=== PATIENT | male | born 1955 | race Caucasian/White ===

== ENCOUNTER 2017-12-28 16:13 | Emergency (ER) | payer OTHER ==
[~2017-12-28] VITALS: Ht 177.8 cm; Wt 65.8 kg
[~2017-12-28 16:13] MED LIST: CIPR500 PO; DOCU100 PO; HYDR1TAB94 PO; OXYB5 PO; TAMS.4ER PO
[2017-12-28] MEDS ORDERED: IBUP600 PO (19:49)
[2017-12-28] MEDS ORDERED: Norco 5-325 Ta1 EACH PO (19:49)
== END 2017-12-28 21:18 | disposition home or self-care (01) ==
LOC: ER 16:13
DX: S68.122A Partial traumatic metacarpophalangeal amputation of right middle finger, initial encounter (principal); F17.200 Nicotine dependence, unspecified, uncomplicated; W27.0XXA Contact with workbench tool, initial encounter
CPT/HCPCS: 99284

== ENCOUNTER 2020-10-10 10:46 | Emergency (ER) | payer MEDICARE, OTHER ==
[~2020-10-10] VITALS: Ht 177.8 cm; Wt 65.8 kg
[~2020-10-10 10:46] MED LIST changes: +IBUP600 PO; +Norco 5-325 Ta1 EACH PO
[2020-10-10 11:47] LABS: BASOPHILS ABSOLUTE AUTO 0.09 K/mm3 (0.00-0.23); BASOPHILS PERCENT AUTO 1 % (0-2); EOSINOPHILS ABSOLUTE AUTO 0.07 K/mm3 (0.00-0.68); EOSINOPHILS PERCENT AUTO 1 % (0-6); Hematocrit 46.1 % (37.0-53.0); Hemoglobin 15.2 g/dL (13.5-17.5); IMMATURE GRAN ABSOLUTE AUTO 0.02 K/mm3 (0.00-0.10); IMMATURE GRAN PERCENT AUTO 0 % (0-1); LYMPHOCYTES ABSOLUTE AUTO 2.31 K/mm3 (0.84-5.20); LYMPHOCYTES PERCENT AUTO 30 % (21-46); MONOCYTES ABSOLUTE AUTO 0.51 K/mm3 (0.16-1.47); MONOCYTES PERCENT AUTO 7 % (4-13); Mean Corpuscular HGB 32.9 pg (26.0-34.0); Mean Corpuscular Volume 100 fL (80-100); Mean Platelet Volume 9.7 fL (9.1-12.4); NEUTROPHILS ABSOLUTE AUTO 4.71 K/mm3 (1.96-9.15); NEUTROPHILS PERCENT AUTO 61 % (41-73); Platelet Count 245 K/mm3 (150-400); RDW Coefficient Variation 12.5 % (11.7-14.2); RDW Standard Deviation 46.2 fL (35.1-46.3); Red Blood Cell Count 4.62 M/mm3 (4.30-5.90); White Blood Cell Count 7.71 K/mm3 (4.00-11.30)
[2020-10-10 12:06] LABS: Alanine Aminotransfer (ALT/SGP 27 U/L (12-78); Albumin, Blood 3.9 g/dL (3.4-5.0); Albumin/Globulin Ratio 1.3 (0.8-1.8); Alk Phos 79 U/L (50-136); Anion Gap 2 mmol/L (6-16); Aspartate Aminotrans (AST/SGOT 16 U/L (12-37); Bilirubin, Total 1.5 mg/dL (0.1-1.0); Blood Urea Nitrogen 16 mg/dL (8-24); Bun/Creatinine Ratio 19.6 (12.0-20.0); CO2, Blood 32 mmol/L (21-32); Chloride, Blood 107 mmol/L (98-108); Creatinine, Blood 0.82 mg/dL (0.60-1.20); Glomerular Filtration Rate >60 (60-); Glucose, Blood 90 mg/dL (70-99); Potassium, Blood 3.6 mmol/L (3.5-5.5); Sodium, Blood 141 mmol/L (136-145); Total Protein, Blood 6.9 g/dL (6.4-8.2)
== END 2020-10-10 16:22 | disposition home or self-care (01) ==
LOC: ER 10:46
PROVIDERS: Physician Assistant
DX: I63.9 Cerebral infarction, unspecified (principal); G81.94 Hemiplegia, unspecified affecting left nondominant side; F17.200 Nicotine dependence, unspecified, uncomplicated
CPT/HCPCS: 36415; 70450; 80053; 85025; 85651; 99285-25

== ENCOUNTER 2020-10-12 11:29 | Inpatient (IN) | payer MEDICARE, OTHER ==
[~2020-10-12] VITALS: Ht 172.7 cm; Wt 57.8 kg
[2020-10-12 11:56] LABS: BASOPHILS ABSOLUTE AUTO 0.05 K/mm3 (0.00-0.23); BASOPHILS PERCENT AUTO 0 % (0-2); EOSINOPHILS ABSOLUTE AUTO 0.05 K/mm3 (0.00-0.68); EOSINOPHILS PERCENT AUTO 0 % (0-6); Hematocrit 41.2 % (37.0-53.0); Hemoglobin 13.8 g/dL (13.5-17.5); IMMATURE GRAN ABSOLUTE AUTO 0.04 K/mm3 (0.00-0.10); IMMATURE GRAN PERCENT AUTO 0 % (0-1); LYMPHOCYTES ABSOLUTE AUTO 1.36 K/mm3 (0.84-5.20); LYMPHOCYTES PERCENT AUTO 11 % (21-46); MONOCYTES PERCENT AUTO 7 % (4-13); Mean Corpuscular HGB 32.7 pg (26.0-34.0); Mean Corpuscular HGB Conc 33.5 g/dL (31.5-36.5); Mean Corpuscular Volume 98 fL (80-100); Mean Platelet Volume 9.8 fL (9.1-12.4); NEUTROPHILS ABSOLUTE AUTO 9.68 K/mm3 (1.96-9.15); NEUTROPHILS PERCENT AUTO 81 % (41-73); Platelet Count 216 K/mm3 (150-400); RDW Coefficient Variation 12.2 % (11.7-14.2); RDW Standard Deviation 43.8 fL (35.1-46.3); Red Blood Cell Count 4.22 M/mm3 (4.30-5.90); White Blood Cell Count 11.98 K/mm3 (4.00-11.30)
[2020-10-12 12:07] LABS: Alanine Aminotransfer (ALT/SGP 23 U/L (12-78); Albumin, Blood 3.3 g/dL (3.4-5.0); Albumin/Globulin Ratio 1.3 (0.8-1.8); Alk Phos 75 U/L (50-136); Anion Gap 5 mmol/L (6-16); Aspartate Aminotrans (AST/SGOT 15 U/L (12-37); Bilirubin, Total 0.5 mg/dL (0.1-1.0); Blood Urea Nitrogen 13 mg/dL (8-24); CO2, Blood 27 mmol/L (21-32); Calcium, Blood 8.3 mg/dL (8.5-10.1); Chloride, Blood 110 mmol/L (98-108); Creatinine, Blood 0.81 mg/dL (0.60-1.20); Globulin, Blood 2.6 g/dL (2.2-4.0); Glomerular Filtration Rate >60 (60-); Glucose, Blood 101 mg/dL (70-99); Potassium, Blood 3.6 mmol/L (3.5-5.5); Sodium, Blood 142 mmol/L (136-145); Total Protein, Blood 5.9 g/dL (6.4-8.2); Troponin I <0.015 ng/mL (0.000-0.040)
[2020-10-12 14:10] LABS: CHOL/HDL RATIO 2.9; Cholesterol 146 mg/dL (50-200); HDL Cholesterol 51 mg/dL (>39); LDL/HDL RATIO 1.7; Low Density Lipoprotein Chol 87 mg/dL (0-110); Triglycerides 41 mg/dL (30-160); Very Low Density Lipoprot Chol 8 mg/dL (6-32)
--- NOTE | 2020-10-12 18:11 | NUR ---
SHIFT SUMMARY PT NEW ADMIT TO PCU FOR CVA. TOTAL LEFT SIDE DEFICIT. SLURRED SPEECH. SLEEPY BUT ORIENTED. ABLE TO PROVIDE MEDICAL HISTORY. BEDREST AND NPO AT THIS TIME. CAROTID US, ECHO, AND NEURO CONSULT ORDERED. CONSULT CALLED IN TO DR KELLEN MARTINS. BRUISING TO BILAT UPPER ARMS. RESTING IN BED AT THIS TIME.
[2020-10-12 20:27] LABS: Source, Urine Clean Catch
[2020-10-12 20:30] LABS: Appearance, Urine Clear (Clear); Bilirubin, Urine Neg (Neg); Blood, Urine Neg (Neg); Color, Urine Yellow (P-Yellow); Glucose Qualitative, Urine Neg (Neg); Ketones, Urine Neg (Neg); Leukocyte Esterase, Urine Neg (Neg); Nitrite, Urine Neg (Neg); Protein, Urine Neg (Neg); Specific Gravity, Urine 1.015 (1.003-1.022); Urobilinogen, Urine NORM (Normal)
--- NOTE | 2020-10-12 22:15 | NUR ---
PATIENT AWAKE AND RESTLESS, ATTEMPTING TO USE URINAL, BECOMING ANGRY WITH ANY ATTEMPT TO ASSIST PATIENT WITH CARE AND WITH ORIENTATION QUESTIONS. AT 1945 PATIENT HAD NO MOVEMENT IN LEFT ARM AND ONLY GROSS MOVEMENT TO HIS LEFT LEG. ATTENDS IN PLACE DUE TO OCCASIONAL INCONTINENCE. ANSWERING QUESTIONS SPEECH SLURRED, DIFFICULT WITH ASSESSMENT BECAUSE PATIENT BECOMING ANGRY WITH QUESTIONS AND NOT ALWAYS ANSWERING THE QUESTION DESPITE EXPLAINING TO PATIENT THAT THIS IS ONE WAY FOR US TO ASSES IF HE IS GETTING BETTER. PATIENT NOW ABLE TO MOVE LEFT ARM AND LEG, FINE MOTOR SKILLS CONTINUE TO BE DIFFICULT ON LEFT SIDE.
[2020-10-13 04:10] LABS: BASOPHILS ABSOLUTE AUTO 0.07 K/mm3 (0.00-0.23); BASOPHILS PERCENT AUTO 1 % (0-2); EOSINOPHILS ABSOLUTE AUTO 0.17 K/mm3 (0.00-0.68); EOSINOPHILS PERCENT AUTO 2 % (0-6); Hematocrit 42.4 % (37.0-53.0); Hemoglobin 14.6 g/dL (13.5-17.5); IMMATURE GRAN ABSOLUTE AUTO 0.01 K/mm3 (0.00-0.10); IMMATURE GRAN PERCENT AUTO 0 % (0-1); LYMPHOCYTES PERCENT AUTO 26 % (21-46); MONOCYTES ABSOLUTE AUTO 0.69 K/mm3 (0.16-1.47); MONOCYTES PERCENT AUTO 8 % (4-13); Mean Corpuscular HGB 32.5 pg (26.0-34.0); Mean Corpuscular HGB Conc 34.4 g/dL (31.5-36.5); Mean Corpuscular Volume 94 fL (80-100); Mean Platelet Volume 9.8 fL (9.1-12.4); NEUTROPHILS ABSOLUTE AUTO 5.67 K/mm3 (1.96-9.15); NEUTROPHILS PERCENT AUTO 64 % (41-73); Platelet Count 224 K/mm3 (150-400); RDW Coefficient Variation 12.1 % (11.7-14.2); RDW Standard Deviation 42.8 fL (35.1-46.3); Red Blood Cell Count 4.49 M/mm3 (4.30-5.90); White Blood Cell Count 8.91 K/mm3 (4.00-11.30)
[2020-10-13 04:36] LABS: Anion Gap 6 mmol/L (6-16); Blood Urea Nitrogen 9 mg/dL (8-24); Bun/Creatinine Ratio 12.4 (12.0-20.0); CO2, Blood 24 mmol/L (21-32); Calcium, Blood 8.3 mg/dL (8.5-10.1); Chloride, Blood 109 mmol/L (98-108); Creatinine, Blood 0.73 mg/dL (0.60-1.20); Glomerular Filtration Rate >60 (60-); Glucose, Blood 89 mg/dL (70-99); Potassium, Blood 3.6 mmol/L (3.5-5.5); Sodium, Blood 139 mmol/L (136-145)
--- NOTE | 2020-10-13 05:34 | NUR ---
SUMMARY PATIENT SLEEPING OFF AND ON T/O NIGHT. WHEN AWAKE ATTEMPTING TO USE THE URINAL, BECOMING ANGRY WHEN NURSING STAFF ATTEMPTS TO ASSIST WITH THE URINAL. PATIENT EITHER MISSING URINAL, OR SPILLING URINAL WHEN USING IT WITHOUT ASSISTANCE. LEFT SIDE WEAKNESS CONTINUES OCCASIONAL GROSS MOVEMENT SEEN TO ARM AND LEG, NO FINE MOTOR SKILLS. PATIENT KEEPING EYES CLOSED MOST OF THE NIGHT, WHEN OPEN CONTINUES TO NOT MAKE GOOD EYE CONTACT. PATIENT REFUSING TO ACKNOWLEDGE THAT HE HAS HAD A CVA. PATIENT QUICK TO ANGER T/O NIGHT
--- NOTE | 2020-10-13 12:54 | NUR ---
Echocardiogram using 9.0ml of agitated saline contrast performed.
--- NOTE | 2020-10-13 18:53 | NUR ---
SHIFT SUMMARY PT ALERT, ORIENTED x2. PT IMPULSIVE, IRRITABLE AT TIMES. PT HAS NO PURPOSEFUL MOVEMENT IN PETRA AND LLE, BOTH TONES AND FLACCID AT TIMES. DENIES VISUAL DISTURBANCES, HOWEVER HAS RIGHT GAZE AND UNABLE TO SEE/FOLLOW WITH LEFT EYE. SPEECH IN SLURRED AND MUMBLED AT TIMES, PT IRRITABLE WHEN ASKED TO REPEAT HIMSELF. PT DENIES PAIN T/O SHIFT. SPO2 >90% ON RA, BREATHING EVEN AND UNLABORED. PT NEICE REPORTS TICK BIT APPROX 2 WEEKS AGO ON LEFT SHOULDER, PT REPORTS IT WAS ON LEFT UPPER ARM, PT HAS SCATTERED SCABS AND BRUISING T/O. PT DENIES NAUSEA AND DIZZINESS. VSS. ORAL CARE COMPLETED Q4. PT REPOSITIONED Q2. NO OTHER ACUTE CHANGES NOTED. REPORT GIVEN TO ONCOMING RN.
--- NOTE | 2020-10-14 05:05 | NUR ---
pt rested well t/o noc. vss. L sided deficit continues. gross movement to LLE, flaccid w/ no sensation to LUE. slight Lsided facial droop. pt resistant and irritable to caregivers including neuro assessments. states "I'm tired of the same questions over and over", "I just want to go home". attempts to reposition pt q2hrs but pt resistant. LUE elevated on pillow. oral care provided. bed alarm on. call light within reach on R side of pt.
--- NOTE | 2020-10-14 18:01 | NUR ---
SHIFT SUMMARY PT A&Ox2. PT IMPULSIVE, IRRITABLE AT TIMES. PT HAS NO PURPOSEFUL MOVEMENT TO LEFT SIDE. LEFT SIDE FLACCID FOR MAJORITY OF SHIFT, AT TIMES LUE RIGID. PT SPEECH SLURRED AND MUMBLED. RIGHT GAZE, PT DENIES VISUAL DISTURABNCES HOWEVER UNABLE TO SEE ON LEFT SIDE OR FOLLOW MOVEMENT ON LEFT SIDE. PT HAD COUGHING EPISODE WITH LUNCH, NOTIFIED SPEECH THERAPY, PLANS TO CONTINUE WITH DIETS PLANNED. THIS EVENING PT CONTINUES TO COUGH WITH NECTAR THIS, LEFT MESSAGE FOR SPEECH THERAPY. LS DIM T/O; SPO2 >90% ON RA, BREATHING EVEN AND UNLABORED. PT DENIES PAIN, CHEST PAIN, NAUSEA AND DIZZINESS. UP TO BSC THIS AFTERNOON WITH 3 PERSON ASSIST, PIVOT BACK TO BED. VSS. NO OTHER ACUTE CHANGES NOTED. WILL CONTINUE TO MONITOR UNTIL REPORT GIVEN TO ONCOMING RN.
--- NOTE | 2020-10-15 04:22 | NUR ---
DAIRY CLERK SUMMARY PT'S NUERO REMAINS NOSTLY UNCHANGED FROM PREVIOUS SHIFT. ALTHOUGH PT CANNOT NOTICE THINGS IN HIS LEFT FIELD OF VIEW HE WAS ABLE TO IDENTIFY HOW MANY FINGERS I WAS HOLDING UP ON HIS L SIDE. PT'S L SIDE REMAINS FLACCID AND HIS SPEECH VERY SLURRED. BP'S WNL AND STALE THIS SHIFT. O2 SATS >92% ON RM AIR ALTHOUGH 3 DIFFERENT BRIEF APNEIC EPSIODES WERE NOTED WHILE THE PT WAS SLEEPING. PT IRRITABLE THIS SHIFT NOT WANTING TO PARTICIPATE W CARE AND HAS BEEN VERY CYNICAL W THE PLAN OF CARE. ORAL CARE PROVIDED Q4H AND REPOSITIONING Q2H. PT COMPLIANT W ORAL CARE AND REPOSITIONING. WILL REPORT TO ONCOMING RN.
--- NOTE | 2020-10-15 17:27 | NUR ---
SHIFT SUMMARY; REPORT GIVEN TO MAYANK UMANZOR ON MEDICAL FOR IN HOUSE TRANSFER. NO ACUTE CHANGES DURING SHIFT. LEFT SIDE REMAINS FLACID, GAZES TO RIGHT. PUPILS EQUAL AND REACTIVE. A/A/OX3, SLOW TO RESPOND, SPEECH SLURRED. CONDOM CATH IN PLACE AND ATTENDS. CATH CHANGED DURING SHIFT. Q2 TURNS PROVIDED DURING SHIFT AND Q4 ORAL CARE. TRANSFERRED TO MEDICAL FLOOR IN NO ACUTE DISTRESS.
--- NOTE | 2020-10-15 18:30 | NUR ---
PT TRANSFERRED TO MY CARE, HE IS TALKATIVE. FAMILY AT BEDSIDE. IS ASSISTING TO FEED. TAUGHT APPROP FEEDING PER NORIS NOTES. FAMILY QUITE PLEASANT AND EAGER TO ASSIST. WATCHED FOR SHORT TIME. NO NEW CONCERNS NOTED. HE TALKING ON PHONE TO NANCY ALSO. BED IN LOW POSITION, CALL LITE IN REACH, BED ALARM ON FOR SAFETY
--- NOTE | 2020-10-15 19:55 | NUR ---
ASSUMED CARE. AOX3, SLURRED SPEECH, LEFT FACIAL DROOP. GAZED TO THE RIGHT. LEFT SIDE FLACCID, STATES FEELS SENSATION, LEANS TO RIGHT. NO PAIN. LUNGS CLEAR. REGULAR HR. CONDOM CATH TO GRAVITY BAG, URINE YELLOW. DENIES CP, NAUSEA, HEADACHES, DIZZINESS, DISCOMFORT, OR ANY OTHER SYMPTOMS. WILL CONTINUE TO MONITOR AND TX. CALL LIGHT IN REACH, BED IN LOW POSITION.
--- NOTE | 2020-10-15 20:30 | NUR ---
POST FALL ASSESSMENT: 1999: FOUND THE PATIENT ON THE FLOOR, LAYING ON THE LEFT SIDE, LEFT ARM TUCKED BEHIND HIM, HEAD FACING TOWARDS END OF THE BED NEXT TO BENCH, LEGS WERE BENT AND CROSSED AT ANKLES, CONDOM CATH WAS PULLED OFF. FALL WAS ON RIGHT SIDE OF BED. PATIENT HAD PULLED SELF UP AND OVER SIDE RAILS. HE STATED "I WAS GOING TO USE THE BATHROOM IN THE SINK". FORGOT HE HAD A CONDOM CATHETER ON. FORGOT HE WAS UNABLE TO STAND ON LEFT LEG. BLOOD NOTED ON BILATERAL FA. PATIENT DENIED PAIN ANYWHERE EVEN IN NECK. DID STATE HE HIT HIS HEAD ON THE BENCH. DENIED CHANGE IN VISION FROM PRIOR TO FALL. ONCE SAFE TO MOVE, POSITIONED ARM IN FRONT OF HIM. CALLED EDMUNDO HACKETT AND FROILAN Varela CNA FOR ASSISTANCE. CALLED CHARGE LINDY AND INFORMED OF FALL AND TIME. SHE WILL INFORM NURSING ABRASIVES SALES REPRESENTATIVE. 2004: EDMUNDO AND FROILAN ARRIVED. HELPED TO ASSIST PATIENT TO SITTING POSITION AND THE THREE OF US LIFTED HIM TO THE SIDE OF BED. HE WAS UNABLE TO KEEP SITTING ON HIS OWN. DENIED ANY DIZZINESS, OR LIGHTHEADNESS. WE ASSISTED HIM ALL THE WAY INTO BED. ALERT AND ORIENTED TO SELF, FAMILY, MONTH, YEAR. DOES NOT KNOW DATE OR TIME. KNOWS HE IS IN ISSUE. AGAIN DENIED PAIN. PUPILS EQUAL AND REACTIVE. LEFT SLUGGISH, ABRASION TO LEFT SHOULDER NEW. VERY SMALL SKIN TEARS TO BILATERAL ARMS. CLEANSED AND PLACED FOAM DRESSINGS. PICS WERE TAKEN. VITALS PRIOR TO FALL 102/67 BP, 82 P, 92% RA, 98.4 TEMP, 16 RESP. POST FALL VITALS: 138/84 BP, 78P, 95% RA, 99.2 TEMP, 20 RESP. LS CLEAR. REGULAR HR. NO CHEST PAIN, DIZZINESS, LIGHTHEADNESS. PUPILS WERE EQUAL, LEFT SLUGGISH, TONGUE DIVIATION, LEFT FACIAL DROOP, FLACCID LEFT SIDE. STATES FEELS SENSATION BILATERALLY. DENIED NEED TO USE BATHROOM. ATTENDS OFF. SLURRED SPEECH. MARIE PRIOR SAFETY MEASURES: ALL SIDE RAILS WERE UP, NO BED ALARM ON AT TIME. CALL LIGHT WAS IN REACH MARIE SCORE: [id number]: CALLED PLACED TO DR. JARRETT, INFORMED OF FALL. ORDER TO MONITOR FOR CHANGES. NO CT AT THIS TIME. CALL IF THERE IS CHANGES.
--- NOTE | 2020-10-15 22:24 | NUR ---
2100: PATIENT IRRITABLE, ASKING FOR CELL PHONE, CHECKED ALL BAGS, NO CELL PHONE. PHONE IN ROOM NOT WORKING. INFORMED HIM WILL BRING ONE IN FOR HIM. SLIGHTLY MORE CONFUSED, STATING "YOU SHOULDN'T MOVE PEOPLE FROM ROOM TO ROOM THINGS GET LOST". BED ALARM STILL ON FROM BEING PLACED ON AFTER FALL. 2212: PATIENT SET OFF ALARM, HAD LEG OVER RAIL, STATING HE NEEDS TO GET UP. SPEECH IS MORE SLURRED AND DIFFICULT TO UNDERSTAND. HE STARTED TO GET VERY ANGRY WHEN I REMINDED HIM HE CAN NOT STAND. ACUSED ME OF STEALING HIS PHONE. STATE HE WANTS TO CALL HIS NELISANDRO, GAVE HIM THE ROOM PHONE AND HELPED HIM CALL ANDRIY. HE APPEARED MORE CONFUSED. HE STARTED TO YELL AT HIS NEICE ON THE PHONE AND WAS NOT COMPERHENDING THAT SHE SAID SHE HAD HIS CELL PHONE. GOT ON PHONE TO EXPLAIN TO HER THE SITUATION AND CLARIFY SHE HAD IT. I WAS ON THE PHONE HE STARTED TO TELL ME HE CAN SEE THE CROSS MOVING IN THE WINDOW. THERE WAS A REFELCTION OF THE CROSS ON THE WALL. WENT TO PUT HAND ON CROSS AND HE SAID IT WAS MOVING. THEN HE TOLD ME THE CURTAIN SON IS MOVING UP AND DOWN. ASKED HIM ORIENTATION QUESTIONS AND HE WAS CONFUSED NOT KNOWING THEM AND NANCY DID MENTION HE NEVER ACTS LIKE THAT AND WAS CONCERNED. GOT OFF PHONE WITH NANCY TO CALL MD ABOUT CHANGES. 2220: SPOKE TO DR. JARRETT REGARDING CHANGES. CT OF HEAD WITH NO CONTRAST ORDERED STAT. 2224: PATIENT TO CT.
--- NOTE | 2020-10-16 01:10 | NUR ---
2300: RETURN FROM CT. NEURO CHECK: PATIENT CALM AND BUT IS NOW RESPONDING SLOW WITH PAUSES LIKE HE IS HAVING TROUBLE COMPERHENDING. VERY TIRED. 0020: CALLED CT RESULTS TO DR. VITAL. HARRISON REYES'S. CHANGES WERE NOTED, PROGRESSION OF STROKE BUT NO BLEED FROM FALL. OK TO TELL NANCY OF PROGESSION BUT TO TALK TO DOCTOR IN MORNING. 0039: CALLED THE NELISANDRO IN REGARDS TO CHANGES. NANCY WAS VERY TALKATIVE AND SAID SHE WAS NEVER TOLD WHAT WAS GOING ON EXCEPT HE HAD SEVERAL BLOOD CLOTS. BEFORE I WAS ABLE TO INFORM HER OF RESULTS, DR. VITAL CALLED SO TOLD HER i WOULD CALL BACK. DR. VITAL ASKED ABOUT THE NEUROLOGICAL CHANGES. INFORMED HIM AND HE SAID HE WOULD CALL THE NELISANDRO. CT SCAN FORWARD TO [facility] PER ORDER. PATIENT CURRENTLY SLEEPING. 0110: CALLED ANDRIY BACK. SHE GAVE GOOD BACK GROUND ON THE PATIENT NOT TELLING HER THE EVENTS THAT HAPPENED OVER THE LAST SEVERAL DAYS. SHE VERBALIZED HER CONCERNS AND FAMILY CONCERNS ABOUT HER ABILITY TO TAKE CARE OF HIM. SHE SAID IF HE IS IN A WHEELCHAIR SHE WOULD NOT BE ABLE TO. DID INFORM HER THAT THE STROKE IS PROGRESSING AND THAT DR. VITAL WILL BE CONTACTING HER.
--- NOTE | 2020-10-16 06:30 | NUR ---
SHIFT SUMMARY; PATIENT HAD FALL AT START OF SHIFT. ASSESSMENT WAS DONE POST-FALL. LEFT SIDE DEFICITS SEEMED TO CHANGE THROUGHOUT THE NIGHT. AFTER FALL HE HAD PROGRESSION OF SYMPTOMS, NO RESPONSE ON THE LEFT SIDE TO WAKING UP THIS AM AND HAVING GROSS MOVEMENT TO LEFT LEG ONLY. STARTED TO HAVE HULLUCINATIONS AND CONFUSION TO MORE CLEAR THIS AM. AGGRESSIVE BEHAVIOR, IRRITABLE TO CALM. CT OF HEAD DONE WITH NOTED CHANGES AND PROGRESSION OF STROKE. NANCY WAS NOTIFED INCLUDIGN OF THE CHANGES. NEURO CHECKS WERE CONTINUED T/O THE NIGHT. PATIENT DID SLEEP FOR PERIOD OF TIME. FOR MORE DETAILS PLEASE SEE NEURO ASSESSMENT FORM AND PATIENT NOTES. POST FALL MARIE SCORE 95. BED ALARM ON AND RAILS UP. BED IN LOW POSITION. POST FALL PROCEDURE COMPLETED WITH POST FALL HUDDLE COMPLETED.
--- NOTE | 2020-10-16 16:50 | NUR ---
PATIENT IS ALERT AND ORIENTED TO SELF AND FOLLOWING DIRECTIONS. PATIENT DOES STARE OFF INTO SPACE AT TIMES. HE WORKED WITH PT/OT TODAY AND HAD A HARD TIME KEEPING FOCUSED. THE PATIENT DID SIT UP ON THE SIDE OF THE BED WITH PT TODAY. HE IS INCONTINENT OF URINE, ATTENDS IN PLACE. TOLERATED FOOD WELL TODAY, ST SUGGESTS FEEDING THE PATIENT FROM THE FRONT AND ASKING HIME TO LOCATE THE SPOON WITH HIS EYES. BED ALARM IS ON. WILL CONTINUE TO MONITOR.
--- NOTE | 2020-10-17 05:03 | NUR ---
SHIFT SUMMARY PT IS IRRITABLE WITH STAFF. NEURO CHECK REMAINS UNCHANGED. FLACCID TO LEFT SIDE. TENDS TO TURN HEAD TO R SIDE. SOME LEFT SIDED FACIAL DROOP AND SLURRED SPEECH. PT INCONTINENT. TURNED Q 2 HOURS. DRESSINGS TO ABRASIONS ON RFA REMAINED C/D/I. NO COMPLAINTS OF PAIN. PT APPEARED TO SLEEP WELL OFF AND ON. VITAL SIGNS STABLE. WILL CONTINUE TO MONITOR.
--- NOTE | 2020-10-17 17:06 | NUR ---
PATIENT IS ALERT AND ORIENTED. HE WAS UPSET THIS MORNING ABOUT HIS PUREE DIET. SPEECH THERAPY EXPLAINED HOW TO ADVANCE DIET AND WHAT HE NEEDS TO BE ABLE TO DO TO DO SO. THE PATIENT HAS HAD A VERY POOR APPETITE TODAY. HE HAS SLEPT MOST OF THE DAY. PATIENT IS ATTEMPTING TO USE A BEDPAN AT THIS TIME. WORKED WITH PT TODAY, AND HAS IMPROVED COMPARED TO YESTERDAY. WILL CONTINUE TO MONITOR
--- NOTE | 2020-10-17 21:15 | NUR ---
ASSUMED CARE. LEO IS AOX3, SLURRED SPEECH, ABLE TO DRINK THICKEN DRINKS ON HIS OWN. REPOSITIONED UP IN BED. ATTENDS IS DRY. NO PAIN. WAS ABLE TO LIFT LEFT ARM BUT UNABLE TO MOVE FINGERS. WAS UNABLE TO MOVE LEFT LEG OR WIGGLE TOES. LEFT FACIAL DROOP WELL. DENIED ANY NEEDS. BED ALARM IS ON, BED IN LOW POSITION. CALL LIGHT IN REACH.
--- NOTE | 2020-10-18 06:01 | NUR ---
SHIFT SUMMARY: LEFT ARM GROSS MOTOR MOVEMENT, LEFT LEG FLACCID. LEFT FACIAL DROOP, LEFT DROOL, GAZE TO THE RIGHT BUT HE HAS BEEN GOOD AT TRYING TO KEEP HEAD FORWARD. DOES GET IRRITATED WHEN ASKED SEVERAL TIMES TO REPEAT SELF. LUNG SOUNDS ARE CLEAR. SLURRED SPEECH THAT GETS WORSE WHEN HE HIS TIRED. SLEEP APNEA NOTED, SEVERAL SECOND PAUSES. SLEPT T/O NIGHT. DENIED ANY NEEDS. POSSIBLE DC TODAY. CALL LIGHT IN REACH, BED ALARM IS ON.
--- NOTE | 2020-10-18 16:15 | NUR ---
PT AGITATED BECAME VERY AGITATED, STATING WANTED OUT OF BED. ATTEMPTED TO ADJUST LINENS UNDER PT, BEGAN CURSING AT STAFF, DEMANDING TO GET OOB. RN AND MANAGER IT SECURITY ASSISTED W/GAIT BELT TO CHAIR W/STAND PIVOT, MAX TWO PERSON ASSIST. PT NOW IN RECLINER W CHAIR ALARM. CALL LIGHT IN REACH. LINENS TO BED CHANGED AND MANAGER IT SECURITY PERFORMED BED BATH.
--- NOTE | 2020-10-18 17:16 | NUR ---
SUMMARY BACK TO BED. CALL LIGHT IN REACH. PT MOD/MAX TWO PERSON ASSIST TO STAND/PIVOT FROM CHAIR TO BED. PT MORE CALM AT THIS TIME, SEE PREVIOUS NOTE CONCERNING AGITATION. PT'S CALL LIGHT ON RIGHT SIDE, WELL TRAY.
--- NOTE | 2020-10-18 18:59 | NUR ---
PT DECLINED OFFER FOR THICKENED WATER.
--- NOTE | 2020-10-18 23:04 | NUR ---
ASSUMED CARE. LEO IS WITHDRAWN AT START OF SHIFT BUT AFTER HIS NEICE STOPPED BY HE WAS MORE BACK TO HIMSELF. HE WAS JOKING AND SMILING. HE ALSO FELT BETTER HE GOT HIS TEETH WASHED VERY WELL, DENTURE IS REMOVED AND SOAKING. ALSO GOT HIM SOME TYLENOL FOR NECK PAIN. ROLLED A TOWEL AND PUT BEHIND HIS HEAD WELL TO SUPPORT THE NECK. HE DID NOT WANT TO EAT MUCH, HE JUST WANT TO HAVE NORMAL FOOD. DISCUSSED THE SAFETY RISK AND HE SEEMS TO UNDERSTAND MORE, USING THE THOUGHT THAT ASPIRATION WILL CAUSE HIM TO STAY IN THE HOSPITAL LONGER, WHICH IS NOT WHAT HE WANTS AT THIS TIME. HE IS CURRENTLY SLEEPING. BED ALARM IS ON AND CALL LIGHT IS IN REACH.
--- NOTE | 2020-10-19 05:01 | NUR ---
SHIFT SUMMARY: LEO WAS VERY IRRITABLE AT START OF SHIFT, JUST NOT WANTING TO DO MUCH. HIS NEICE ANDRIY ARRIVED WHICH HELPED TO PUT HIM IN A BETTER MOOD. AFTER SHE LEFT PM AND ORAL CARE WAS PROVIDED. HE SPOKE ABOUT HOW DIFFICULT THIS WAS FOR HE HAS ALWAYS BEEN INDEPENDENT. BEING TOLD WHAT HE CAN AND CAN'T DO OR WHAT SOMEONE IS DOING FOR HIM HAS BEEN VERY DOWN GRADING FOR HIM. HE THEN GOT INTO A BETTER MOOD FOR SHORT PERIOD. HIS SYMPTOMS HAVE NOT CHANGED BUT DO CHANGE FROM TIME TO TIME ON HOW MUCH HE CAN USE HIS ARM AND LEG. NO FINE MOTER SKILLS. VSS, AFEBRILE. WANTS TO GO HOME BUT DID DICUSS WITH HIM THE NEED TO GO TO REHAB. WILL CONTINUE TO MONITOR CALL LIGHT IN REACH, BED ALARM ON.
[2020-10-19 08:33] LABS: Hemoglobin 16.6 g/dL (13.5-17.5)
[2020-10-19 08:51] LABS: Anion Gap 4 mmol/L (6-16); Blood Urea Nitrogen 27 mg/dL (8-24); Bun/Creatinine Ratio 32.9 (12.0-20.0); CO2, Blood 28 mmol/L (21-32); Calcium, Blood 9.5 mg/dL (8.5-10.1); Chloride, Blood 106 mmol/L (98-108); Creatinine, Blood 0.82 mg/dL (0.60-1.20); Glomerular Filtration Rate >60 (60-); Glucose, Blood 105 mg/dL (70-99); Potassium, Blood 4.1 mmol/L (3.5-5.5); Sodium, Blood 138 mmol/L (136-145)
--- NOTE | 2020-10-19 13:26 | NUR ---
SHIFT SUMMARY PT RESTING QUIETLY AT START OF SHIFT. REFUSED TO EAT BREAKFAST OR LUNCH. DOES NOT LIKE PUREE DIET AND WANTS THIN WATER, NO THICKENED LIQUIDS. PT HAS BEEN VERY IRRITABLE TODAY TO PRESENT. SUPPOSITORY GIVEN EARLIER THIS AM; MINIMAL EFFECT. PT LATER REQUESTED EMEMA. DR GILBERT NOTIFIED; NEW ORDERS PLACED, EMEMA GIVEN. SM AMT OF STOOL OUT TO PRESENT. STAT COVID TO BE DONE FOR POSSIBLE D/C TO SNF TOMORROW. NO C/O PAIN. L SIDE MOSTLY FLACCID. BED ALARM ON FOR SAFETY. CALL LT IN REACH.
[2020-10-19 16:17] LABS: SARS-Cov-2 (COVID-19) PCR, MMC NEGATIVE (NEGATIVE)
--- NOTE | 2020-10-20 | NUR ---
2310-PATIENT CHECKED, WAS SLEEPING, BED ALARM ON, 2 RAILS UP, CALL LIGHT IN REACH. WENT TO ASSIST WITH ANOTHER PATIENT WHEN I HEARD THE ALARM SOUNDING, MADE SURE THE PATIENT I WAS WITH WAS SAFE BEFORE LEAVING. 2330-PATIENT FOUND ON FLOOR LEFT SIDE, BLOOD ON FLOOR AND DRIPPING FROM LEFT SIDE OF FACE. "I WANT TO GET UP". ASKED IF HE HAD TO USE THE BATHROOM, HE SAID NO BUT HE PISSED HIMSELF. GOT HIM TO SITTING POSITION, WAS UNABLE TO HOLD SELF UP. HE ATTEMPTED SEVERAL TIMES TO GET UP ON HIS OWN, EVEN GRABBED THE END OF THE BED, TRYING TO PULL SELF UP BUT WAS SLIDING UNDER THE BED. HE WOULD NOT LISTEN TO STAFF. WITH 2 PEOPLE WAS ABLE TO LIFT TO CHAIR THEN TO BED. LACERATIONS NOTED TO LEFT CHECKBONE MEASURES 1 INCH. LEFT EYEBROW 0.5 LENGTH. AND SKIN TEAR TO LEFT EAR LOBE INNER SIDE. CLEANSED ALL AREAS, PICS TAKEN. DID PLACE POSI VEST AT THIS TIME. RESTRAINTS PLACED. STERI-STRIPS TO CHECKBONE X2. CHARGE LINDY TALLEY ARRIVED TO ROOM AT SAME TIME I DID. 2347: DR. VITAL WAS NOTIFED, CT WAS ORDERED STAT, ORDER FOR RESTRAINTS OBTAINED. 2355: NOTIFIED FAMILY : ANDRIY CRUZ.
--- NOTE | 2020-10-20 06:38 | NUR ---
SHIFT CHANGE: LEO HAS BEEN VERY SABA, IRRITABLE, AND APPEARS TO BE GRUMPY AT TIMES. HE IS HAVING A HARD TIME ADJUSTING TO HIS NEW SITUATION. HE'S VERY DETERMINED THAT HE CAN GET UP AND GO. HE IS NOT ADJUSTING TO THE FACT THAT HE CAN NOT DO THINGS LIKE BEFORE. HE FELL AGAIN LAST NIGHT TRYING TO GET UP. HE WAS VERY DETERMINED AND BASICALLY THROUGH HIMSELF OUT OF BED ONTO THE FLOOR. LACERATION ON THE LEFT CHEEK, LEFT EYEBROW AND SKIN TEAR IN HIS LEFT EARLOBE. CT SHOWED NO CHANGES. OZIEL VEST WAS APPLIED PER ORDERS. PATIENT SLEPT REST OF NIGHT, DID WAKE UP THIS MORNING AND HAD A LONG TALK WITH HIM ABOUT SLOW PROGRESSION THAT HE JUST CAN'T GET UP AND GO AT THIS TIME. DISCUSSED NEED TO EAT AND DRINK, WORK WITH PT AND USE HIS DETERMINATION TO BUILD HIS STREGNTH UP. HE BROKE DOWN IN TEARS ABOUT HIS SITUATION AND HOW HE WILL NOT BE ABLE TO DO THINGS. SAT AND TALKED WITH HIM FOR A WHILE. HE DID FALL BACK TO SLEEP. CALL LIGHT IS IN REACH. BED ALARM IS ON, OZIEL VEST IN PLACE.
--- NOTE | 2020-10-20 18:06 | NUR ---
will attetmpt again to reach family. pt on held due to restraints.
--- NOTE | 2020-10-20 18:33 | NUR ---
SHIFT SUMMARY PT ALERT; GARBLED SPEECH DUE TO CVA DEFICITS; LEFT SIDED WEAKNESS NO RESPONSE ON LEFT SIDE. PT ON RESTRAINTS DUE TO VERY HIGH FALL RISK AND DOES NOT UNDERSTAND HIS DISEASE PROCESS;EDUCATED THE PT TODAY ABOUT USING CALL LIGHTS; THE PT DOES NOT LIKE PUREE DIET HOWEVER HE IS HIGH ASPIRATION RISK. PT IS ALSO A FEEDER. BED IS IN THE LOWEST POSITION, BED ALARM ON AND CALL LIGHT WITHIN REACH
--- NOTE | 2020-10-21 05:27 | NUR ---
SHIFT SUMMARY: LEO HAS BEEN SLEEPING 90% OF THE SHIFT, EXCEPT FOR ATTENDS CHANGE AND REPOSITIONING. HE WAS ABLE TO FLEX HIS LEFT THIGH MUSCLES AND LIFT HIS LEFT LEG UP SLIGHTLY. ARM NO MOVEMENT. NO CHANGES IN SPEECH, VISION, OR SENSATION. LEFT CHEEK HAS DECREASED IN SIDE. STERI-STRIPS ARE HOLDING. STILL HAVING LOOSE BOWEL, HELD SENNA. VSS/AFEBRILE. REMOVED RESTRAINTS AT 2245 LAST NIGHT, HE DOES UNDERSTAND HE CAN NOT GET UP BUT I THINK HE FORGETS THE LIMITATION. REMINDERS CAN HELP T/O THE DAY. NO OTHER CHANGES TO NOTE. CALL LIGHT IS IN REACH, BED ALARM IS ON SENSITIVE. 3 RAILS UP. BED IN LOW POSITION.
--- NOTE | 2020-10-21 15:11 | NUR ---
PT REALLY FRUSTRATED AND ANGRY ABOUT THE FACT THAT HE IS ON PUREE DIET AND NECTAR THICK FLUIDS. HE HAS BEEN WANTING TO DRINK THIN LIQUIDS; BUT HE HAS TO BE REEVALUATED FOR ST. EDUCATED THE PT ABOUT RISK OF ASPIRATION. BUT HE STATED "I DONT CARE ANYMORE. " THIS RN CALLED ST AND LEFT A MESSAGE. REFUSED AM MEDS; REFUSED ORAL FLUIDS. PT STATED " I AM NOT DRINKING THAT CAT PEE." PT STATED THAT NO ONE IS HELPING HIM BECAUSE WE ARE NOT GIVING HIM WHAT HE WANTS. HE IS VERY IMPULSIVE, AND DETERMINED TO GET OUT OF BED WITHOUT HELP. HE ATTEMPTED TO JUMP OUT OF BED SEVERAL TIMES TODAY; BED ALARM IS ON.
--- NOTE | 2020-10-21 17:15 | NUR ---
SHIFT SUMMARY GIVEN REPORT TO ABHINAV. PT MOVED TO ROOM 344. PT DENIES ANY PAIN OR SOB. NICOTINE PATCH PLACED ON HIS RIGHT ARM. ON RA. NO TELE. NO OTHER ACUTE CHANGES. AWAITS PLACEMENT. PT REFUSED MEDS THIS AM. SEE PREVIOUS NOTE.
--- NOTE | 2020-10-22 04:42 | NUR ---
SHIFT SUMMARY PT IS A 65 Y/O MALE, ADMITTED FOR CVA WITH L-SIDE DEFICITS. HE IS A&O X 2, FORGETFUL AT TIMES, BEDREST, INCONTINENT. LEFT SIDE HAS GROSS MOVEMENT, WITH MILD SLURRED SPEECH AT TIMES. NO C/O ACUTE PAIN, NAUSEA OR SOB. VITAL SIGNS STABLE. NO ACUTE CHANGES IN PT CONDITION NOTED. WILL CONTINUE TO MONITOR AND TREAT PER EMAR UNTIL HAND OFF TO DAY SHIFT RN.
--- NOTE | 2020-10-22 08:25 | NUR ---
AGITATION PT AGITATED THIS AM. WANTING TO SPEAK WITH THE DR. "THIS INSTANT". PT RELUCTANTLY ALLOWED FOR VITALS & LABWORK. PT ASKING FOR WATER. STATING HE DOESNT WANT "THE POSSUM PISS" THEY HAVE BEEN GIVING HIM. PT OFFERED THICKED WATER. PT STATES THIS IS THE "POSSUM PISS" HE DIDNT WANT AND DEMANDED REGULAR WATER. PT EDUCATED THAT HE CANNOT HAVE REGULAR WATER AND HE CAN HAVE THICKENED WATER OR THICKEN OJ. PT RAISED HIS HAND STATING HE WILL TRY THE WATER. WHEN THIS RN HANDED THE THINKED WATER TO HIM, HE HIT THE WATER AND IT SPILT ALL OVER THE FLOOR AND THIS RN. PT INFORMED THAT IS INAPPROPRIATE AND HE CANNOT TREAT STAFF LIKE THAT. MEAL TRAY REMOVED FROM REACH. BED ALARM IN PLACE. PT REFUSING MEDS AT THIS TIME.
[2020-10-22 08:50] LABS: Albumin, Blood 3.4 g/dL (3.4-5.0); Anion Gap 5 mmol/L (6-16); Blood Urea Nitrogen 29 mg/dL (8-24); Bun/Creatinine Ratio 35.4 (12.0-20.0); CO2, Blood 29 mmol/L (21-32); Calcium, Blood 9.6 mg/dL (8.5-10.1); Chloride, Blood 109 mmol/L (98-108); Creatinine, Blood 0.82 mg/dL (0.60-1.20); Glomerular Filtration Rate >60 (60-); Glucose, Blood 108 mg/dL (70-99); Phosphorus, Blood 3.6 mg/dL (2.5-4.9); Potassium, Blood 3.7 mmol/L (3.5-5.5); Sodium, Blood 143 mmol/L (136-145)
--- NOTE | 2020-10-22 17:24 | NUR ---
SHIFT SUMMARY PT HAD DIFFICULT MORNING, HOWEVER ATTITUDE CHANGED AFTER REPEAT SPEECH EVAL WAS COMPLETED. PT TRANSITIONED TO THIN LIQUIDS AND MECH SOFT DIET. PT TOLERATING THIN LIQ WELL WHEN SITTING AT 90 DEGREES AND WITH LITTLE SIPS. PT MUCH HAPPIER AND COMPLIANT WITH CARE AFTER THIS CHANGE. PT WORKED WITH PHYSICAL THERAPY AND OT ALSO TODAY. NEW PREVENTATIVE FOAM PLACED TO SACRUM. DR. HANNA CALLED ABOUT [facility]. [place] ORDERED FOR PT QID. PT INTERVIEWED BY [facility] TODAY FOR POSSIBLE PLACEMENT. NO OTHER CHANGES IN ASSESSMENT AT THIS TIME. NO IV ACCESS ORDER OBTAINED. PT RESTING IN BED. BED ALARM SET. CALL LIGHT IN REACH.
--- NOTE | 2020-10-23 06:36 | NUR ---
SHIFT SUMMARY A/OX2, PLEASANT AND COOPERATIVE T/O SHIFT. L. SIDE FLACCID D/T CVA. ROUTINE ORAL CARE FOR [facility]. CONTINUES TO HAVE DIFFICULTY SWALLOWING, SUCTION AT BEDSIDE. VSS, NO ACUTE CHANGES AT THIS TIME. BED IN LOWEST POSIITON WITH CALL LIGHT IN REACH. WILL CONTINUE TO MONITOR AND REPORT TO ONCOMING RN.
[2020-10-23] MEDS ORDERED: BISA10S PR (15:38)
[2020-10-23] MEDS ORDERED: ATOR20 PO (15:38)
[2020-10-23] MEDS ORDERED: ACET500 PO (15:38)
[2020-10-23] MEDS ORDERED: ASPI81CH PO (15:38)
[2020-10-23] MEDS ORDERED: AMLO5 PO (15:38)
[2020-10-23] MEDS ORDERED: DOCUZEN 8.6-501 EACH PO (15:39)
[2020-10-23] MEDS ORDERED: Nicoderm Cq1 EAC1 TOP (15:39)
[2020-10-23] MEDS ORDERED: NYSTATIN100000 UN1 PO (15:39)
[2020-10-23] MEDS ORDERED: MIRALAX17 GM PO (15:40)
[2020-10-23 15:45] LABS: SARS-Cov-2 (COVID-19) PCR, MMC NEGATIVE (NEGATIVE)
--- NOTE | 2020-10-23 18:42 | NUR ---
DISCHARGE SUMMARY PT DISCHARGED TO [facility] THIS SHIFT. REPORT GIVEN TO NURSE BACA IN [place]. PT A&OX3, ABLE TO MAKE NEEDS KNOWN. PLEASANT AND COOPERATIVE TO CARE. PT VERBALIZED UNDERSTANDING OF DISCHARGE ORDERS. NO COMPLAINTS OR ANY CONCERNS NOTED FROM PT PRIOR TO DISCHARGE. NO C/O PAIN OR ANY DISCOMFORT. DISCHARGE PAPERWORK GIVEN TO AMBULANCE STAFF UPON PT's DISCHARGE.
== END 2020-10-23 18:43 | DRG 65 ==
LOC: ER 11:29 → PCU 13:34 → MEDS 10-15 17:40
PROVIDERS: Emergency Medicine; Internal Medicine; ADMIT Internal Medicine
DX: I63.89 Other cerebral infarction (principal); G81.94 Hemiplegia, unspecified affecting left nondominant side; Q21.1 Atrial septal defect; B37.0 Candidal stomatitis; I10 Essential (primary) hypertension; E78.5 Hyperlipidemia, unspecified; R47.81 Slurred speech; F17.210 Nicotine dependence, cigarettes, uncomplicated; Z20.822 Contact with and (suspected) exposure to COVID-19; R47.1 Dysarthria and anarthria; H53.47 Heteronymous bilateral field defects; R29.810 Facial weakness; Z60.2 Problems related to living alone; N40.0 Benign prostatic hyperplasia without lower urinary tract symptoms; R13.10 Dysphagia, unspecified; Z90.79 Acquired absence of other genital organ(s); Z98.890 Other specified postprocedural states; Z95.1 Presence of aortocoronary bypass graft; Z79.82 Long term (current) use of aspirin; Z79.899 Other long term (current) drug therapy; Z78.1 Physical restraint status
CPT/HCPCS: 36415; 70450; 80048; 80053; 80061; 80069; 81003; 82550; 83036; 83690; 84484; 85014; 85018; 85025; 92526; 92610; 93005; 93010; 93306; 93880; 97110; 97110-CQ; 97112; 97162; 97167; 97530; 97530-CQ; 97535; 99285-25; A9270; J1650; J7030; U0004

== ENCOUNTER 2020-10-25 01:19 | Emergency (ER) | payer MEDICARE, OTHER ==
[~2020-10-25] VITALS: Ht 177.8 cm; Wt 54.4 kg
[~2020-10-25 01:19] MED LIST changes: +ACET500 PO; +AMLO5 PO; +ASPI81CH PO; +ATOR20 PO; +BISA10S PR; +DOCUZEN 8.6-501 EACH PO; +MIRALAX17 GM PO; +NYSTATIN100000 UN1 PO; +Nicoderm Cq1 EAC1 TOP
[2020-10-25] MEDS ORDERED: AMLO5 PO (02:53)
[2020-10-25] MEDS ORDERED: SENN187 PO (02:53)
== END 2020-10-25 03:04 | disposition home or self-care (01) ==
LOC: ER 01:19
DX: S00.03XA Contusion of scalp, initial encounter (principal); I10 Essential (primary) hypertension; I69.354 Hemiplegia and hemiparesis following cerebral infarction affecting left non-dominant side; F17.200 Nicotine dependence, unspecified, uncomplicated; Z79.82 Long term (current) use of aspirin; Z79.899 Other long term (current) drug therapy; W06.XXXA Fall from bed, initial encounter
CPT/HCPCS: 70450; 72125; 99284-25

== ENCOUNTER 2021-01-08 13:37 | Observation (INO) | payer MEDICARE, OTHER ==
[~2021-01-08] VITALS: Ht 177.8 cm; Wt 57.7 kg
[~2021-01-08 13:37] MED LIST changes: -ASPI81CH PO; -ATOR20 PO; +SENN187 PO
[2021-01-08 15:16] LABS: BASOPHILS ABSOLUTE AUTO 0.03 K/mm3 (0.00-0.23); BASOPHILS PERCENT AUTO 0 % (0-2); EOSINOPHILS ABSOLUTE AUTO 0.38 K/mm3 (0.00-0.68); EOSINOPHILS PERCENT AUTO 5 % (0-6); Hematocrit 44.4 % (37.0-53.0); Hemoglobin 14.9 g/dL (13.5-17.5); IMMATURE GRAN ABSOLUTE AUTO 0.02 K/mm3 (0.00-0.10); IMMATURE GRAN PERCENT AUTO 0 % (0-1); LYMPHOCYTES ABSOLUTE AUTO 1.56 K/mm3 (0.84-5.20); LYMPHOCYTES PERCENT AUTO 20 % (21-46); MONOCYTES ABSOLUTE AUTO 0.68 K/mm3 (0.16-1.47); MONOCYTES PERCENT AUTO 9 % (4-13); Mean Corpuscular HGB 32.5 pg (26.0-34.0); Mean Corpuscular HGB Conc 33.6 g/dL (31.5-36.5); Mean Corpuscular Volume 97 fL (80-100); Mean Platelet Volume 9.4 fL (9.1-12.4); NEUTROPHILS PERCENT AUTO 66 % (41-73); Platelet Count 261 K/mm3 (150-400); RDW Coefficient Variation 12.7 % (11.7-14.2); RDW Standard Deviation 45.8 fL (35.1-46.3); Red Blood Cell Count 4.59 M/mm3 (4.30-5.90); White Blood Cell Count 7.87 K/mm3 (4.00-11.30)
[2021-01-08 15:32] LABS: International Normalized Ratio 0.95; Prothrombin Time Results 10.3 Sec (9.7-11.5)
[2021-01-08 15:49] LABS: Alanine Aminotransfer (ALT/SGP 30 U/L (12-78); Albumin, Blood 3.6 g/dL (3.4-5.0); Albumin/Globulin Ratio 1.3 (0.8-1.8); Alk Phos 76 U/L (50-136); Anion Gap 6 mmol/L (6-16); Aspartate Aminotrans (AST/SGOT 12 U/L (12-37); Bilirubin, Total 1.4 mg/dL (0.1-1.0); Blood Urea Nitrogen 17 mg/dL (8-24); CO2, Blood 29 mmol/L (21-32); Calcium, Blood 8.5 mg/dL (8.5-10.1); Chloride, Blood 108 mmol/L (98-108); Creatinine, Blood 0.65 mg/dL (0.60-1.20); Globulin, Blood 2.8 g/dL (2.2-4.0); Glomerular Filtration Rate >60 (60-); Glucose, Blood 86 mg/dL (70-99); Potassium, Blood 3.8 mmol/L (3.5-5.5); Sodium, Blood 143 mmol/L (136-145); Total Protein, Blood 6.4 g/dL (6.4-8.2)
[2021-01-08] MEDS ORDERED: AMLODIPINE BESYL5 MG PO (16:32)
[2021-01-08] MEDS ORDERED: ATOR20 PO (16:32)
[2021-01-08] MEDS ORDERED: CITALOPRAM HBR20 M3 PO (16:33)
[2021-01-08] MEDS ORDERED: Aspir 8181 MG PO (16:41)
[2021-01-08 19:07] LABS: SARS-Cov-2 (COVID-19) PCR, MMC NEGATIVE (NEGATIVE)
--- NOTE | 2021-01-09 04:40 | NUR ---
Patient admitted to unit during change of shift on evening. patient has weakness/flaccid to left upper extremity. has home wheelchair and home cane at bedside. also home meds entered. he has labile mood swings, so unable to fully get patient's full admission history and full skin assessment due to lack of cooperation. bed alarm on for safety. no significant events overnight.
[2021-01-09 05:36] LABS: BASOPHILS ABSOLUTE AUTO 0.03 K/mm3 (0.00-0.23); BASOPHILS PERCENT AUTO 0 % (0-2); EOSINOPHILS ABSOLUTE AUTO 0.65 K/mm3 (0.00-0.68); EOSINOPHILS PERCENT AUTO 7 % (0-6); Hematocrit 44.6 % (37.0-53.0); IMMATURE GRAN ABSOLUTE AUTO 0.02 K/mm3 (0.00-0.10); IMMATURE GRAN PERCENT AUTO 0 % (0-1); LYMPHOCYTES ABSOLUTE AUTO 1.96 K/mm3 (0.84-5.20); LYMPHOCYTES PERCENT AUTO 22 % (21-46); MONOCYTES ABSOLUTE AUTO 0.73 K/mm3 (0.16-1.47); MONOCYTES PERCENT AUTO 8 % (4-13); Mean Corpuscular HGB 31.9 pg (26.0-34.0); Mean Corpuscular HGB Conc 33.6 g/dL (31.5-36.5); Mean Corpuscular Volume 95 fL (80-100); Mean Platelet Volume 9.9 fL (9.1-12.4); NEUTROPHILS ABSOLUTE AUTO 5.55 K/mm3 (1.96-9.15); NEUTROPHILS PERCENT AUTO 62 % (41-73); Platelet Count 266 K/mm3 (150-400); RDW Coefficient Variation 12.5 % (11.7-14.2); RDW Standard Deviation 44.3 fL (35.1-46.3); White Blood Cell Count 8.94 K/mm3 (4.00-11.30)
[2021-01-09 05:53] LABS: Alanine Aminotransfer (ALT/SGP 30 U/L (12-78); Albumin, Blood 3.3 g/dL (3.4-5.0); Albumin/Globulin Ratio 1.2 (0.8-1.8); Alk Phos 76 U/L (50-136); Anion Gap 5 mmol/L (6-16); Aspartate Aminotrans (AST/SGOT 12 U/L (12-37); Bilirubin, Total 1.4 mg/dL (0.1-1.0); Blood Urea Nitrogen 17 mg/dL (8-24); Bun/Creatinine Ratio 22.7 (12.0-20.0); CO2, Blood 28 mmol/L (21-32); Calcium, Blood 9.1 mg/dL (8.5-10.1); Chloride, Blood 108 mmol/L (98-108); Creatinine, Blood 0.75 mg/dL (0.60-1.20); Globulin, Blood 2.7 g/dL (2.2-4.0); Glomerular Filtration Rate >60 (60-); Glucose, Blood 87 mg/dL (70-99); Potassium, Blood 3.7 mmol/L (3.5-5.5); Sodium, Blood 141 mmol/L (136-145)
--- NOTE | 2021-01-09 12:30 | NUR ---
PT A/O TO SELF, FAM, SITUATION. FOR BASIC QUESTIONS. SEEMS EASILY IRRITATED. DENIES PAIN AT THIS TIME. H/R REG, NO MURMER NOTED. NO TELE. LUNGS CLEAR RESP EASY, UNLABORED. ON R.A. 1 ASST TO BATHROOM. PRESENTLY IN CHAIR. BED IN LOW POSITION, CALL LITE IN REACH, BED ALARM ON FOR SFAETY
--- NOTE | 2021-01-09 18:41 | NUR ---
PT QUITE PLEASNT TODAY. RT ADJUSTED O2 SOME TODAY. IS KEEPING O2 ABOVE 95% MOST OF TIME. DID RECEIVE PD LAST NITE AND BEEN SET UP FOR PD TONITE ALSO. CONTINUE TO MONITOR. BED IN LOW POSITION, CALL LITE IN REACH, CALLS APPROP
--- NOTE | 2021-01-10 03:53 | NUR ---
NO ACUTE CHANGES TO CONDITION OVERNIGHT.NO SIGNIFICANT EVENTS OCCURED. COMPLAINS OF NEEDING A LAXATIVE. SCHEDULED SENNA GIVEN. BED ALARM ON. CANE AND WHEELCHAIR AT THE BEDSIDE.
--- NOTE | 2021-01-10 10:00 | NUR ---
PT PLEASANT TODAY. A/O X3, DENIES PAIN. H/R REG, NO MURMER NOTED. NO TELE NOTED. LUNGS CLEAR, RESP EASY, UNLABORED. ON R.A. LEFT ARM NEARLY FLACID. LEFT LEG GROSS MOVEMENT ONLY. SOME FACIAL DROOP. STATES STROKE SOME TIME BACK. STATES WANTS TO GET REHAB AND GO HOME. BED IN LOW POSITION, CALL [facility] IN [place], BED ALARM ON FOR SAFETY
--- NOTE | 2021-01-10 19:45 | NUR ---
PT WAS SUPPOSED TO BE DISCHARGED TO SNF TODAY. SNF NOT AWARE HE COMMING. CARE MANAGEMENTWORKING ON THIS CASE. NOT ABLE TO TRANSFER TODAY. PT OKAY WITH THIS. NO CONCERNS NOTED TODAY. BED IN LOW POSITION, CALL LITE IN RE[place], BED ALARM ON FOR SAFETY
--- NOTE | 2021-01-11 03:36 | NUR ---
NO ACUTE CHANGES OR SIGNIFICANT EVENTS OCCURED OVERNIGHT. PATIENT IS LESS TEMPERMENTAL,MORE COOPERATIVE THAN THE PREVIOUS NIGHTS. DENIES PAIN. DENIES NAUSEA. BED ALARM ON. WHEELCHAIR AND CANE ARE AT BEDSIDE. AWAITING PLACEMENT IN SNF.
--- NOTE | 2021-01-11 13:22 | NUR ---
in su in for short visit then back into room, instructed that he should go to snf, asked cn to help id reason not gone yesterday
--- NOTE | 2021-01-11 15:50 | NUR ---
a+o eager to get back to snf, transport arrived and assisted him in his wc to ambulance to transport to , called report to [facility], sent mediation with transport, asked that they give them to a staff member not the pt, left with razor and clippers as well as hat and mirror
== END 2021-01-11 15:39 ==
LOC: ER 13:37 → MEDS 13:38 → ER 18:55 → MEDS 19:10
PROVIDERS: Student in an Organized Health Care Education/Training Program; ADMIT Hospitalist
DX: I63.9 Cerebral infarction, unspecified (principal); R47.81 Slurred speech; R29.810 Facial weakness; I69.354 Hemiplegia and hemiparesis following cerebral infarction affecting left non-dominant side; I10 Essential (primary) hypertension; N40.0 Benign prostatic hyperplasia without lower urinary tract symptoms; F32.9 Major depressive disorder, single episode, unspecified; F17.200 Nicotine dependence, unspecified, uncomplicated; Z79.82 Long term (current) use of aspirin; Z87.74 Personal history of (corrected) congenital malformations of heart and circulatory system
CPT/HCPCS: 36415; 70450; 80053; 85025; 85610; 85730; 93005; 93010; 96372; 97110; 97116; 97162; 97165; 97530; 97535; 99285-25; A9270; G0378; J1650; U0004

== ENCOUNTER → 2021-10-07 | Outpatient (CLI) | payer MEDICARE, OTHER ==
[~2021-10-07] MED LIST changes: +AMLODIPINE BESYL5 MG PO; +ATOR20 PO; +Aspir 8181 MG PO; +CITALOPRAM HBR20 M3 PO
[2021-10-07 12:01] LABS: BASOPHILS ABSOLUTE AUTO 0.06 K/mm3 (0.00-0.23); BASOPHILS PERCENT AUTO 1 % (0-2); EOSINOPHILS PERCENT AUTO 3 % (0-6); Hematocrit 45.6 % (37.0-53.0); Hemoglobin 15.2 g/dL (13.5-17.5); IMMATURE GRAN ABSOLUTE AUTO 0.01 K/mm3 (0.00-0.10); IMMATURE GRAN PERCENT AUTO 0 % (0-1); LYMPHOCYTES ABSOLUTE AUTO 1.94 K/mm3 (0.84-5.20); LYMPHOCYTES PERCENT AUTO 28 % (21-46); MONOCYTES ABSOLUTE AUTO 0.54 K/mm3 (0.16-1.47); MONOCYTES PERCENT AUTO 8 % (4-13); Mean Corpuscular HGB 31.8 pg (26.0-34.0); Mean Corpuscular HGB Conc 33.3 g/dL (31.5-36.5); Mean Corpuscular Volume 95 fL (80-100); Mean Platelet Volume 10.4 fL (9.1-12.4); NEUTROPHILS ABSOLUTE AUTO 4.07 K/mm3 (1.96-9.15); NEUTROPHILS PERCENT AUTO 60 % (41-73); Platelet Count 254 K/mm3 (150-400); RDW Coefficient Variation 12.2 % (11.7-14.2); RDW Standard Deviation 43.3 fL (35.1-46.3); Red Blood Cell Count 4.78 M/mm3 (4.30-5.90); White Blood Cell Count 6.82 K/mm3 (4.00-11.30)
[2021-10-07 12:16] LABS: Alanine Aminotransfer (ALT/SGP 38 U/L (12-78); Albumin, Blood 3.6 g/dL (3.4-5.0); Albumin/Globulin Ratio 1.4 (0.8-1.8); Alk Phos 67 U/L (50-136); Anion Gap 7 mmol/L (6-16); Aspartate Aminotrans (AST/SGOT 14 U/L (12-37); Bilirubin, Total 1.1 mg/dL (0.1-1.0); Blood Urea Nitrogen 16 mg/dL (8-24); Bun/Creatinine Ratio 28.8 (12.0-20.0); CHOL/HDL RATIO 2.3; CO2, Blood 28 mmol/L (21-32); Calcium, Blood 8.9 mg/dL (8.5-10.1); Chloride, Blood 106 mmol/L (98-108); Cholesterol 143 mg/dL (50-200); Creatinine, Blood 0.56 mg/dL (0.60-1.20); Globulin, Blood 2.5 g/dL (2.2-4.0); Glomerular Filtration Rate 109 (60-); Glucose, Blood 85 mg/dL (70-99); HDL Cholesterol 62 mg/dL (>39); LDL/HDL RATIO 1.2; Low Density Lipoprotein Chol 74 mg/dL (0-110); Potassium, Blood 4.2 mmol/L (3.5-5.5); Sodium, Blood 141 mmol/L (136-145); Total Protein, Blood 6.1 g/dL (6.4-8.2); Triglycerides 34 mg/dL (30-160); Very Low Density Lipoprot Chol 6 mg/dL (6-32)
== END | disposition home or self-care (01) ==
LOC: LAB SHORT 09:15 → LAB 09:15
PROVIDERS: Nurse Practitioner Family
DX: Z00.00 Encounter for general adult medical examination without abnormal findings (principal); E78.00 Pure hypercholesterolemia, unspecified
CPT/HCPCS: 80053; 80061; 84443; 85025

== ENCOUNTER → 2022-03-09 | Outpatient (CLI) | payer MEDICARE, OTHER ==
[2022-03-10 12:39] LABS: Source, Urine Clean Catch
[2022-03-10 13:24] LABS: Appearance, Urine Hazy (Clear); Bilirubin, Urine Neg (Neg); Blood, Urine Neg (Neg); Color, Urine Yellow (P-Yellow); Glucose Qualitative, Urine Neg (Neg); Ketones, Urine Neg (Neg); Leukocyte Esterase, Urine 1+ (Neg); Nitrite, Urine Neg (Neg); Protein, Urine 1+ (Neg); Urobilinogen, Urine NORM (Normal)
[2022-03-10 13:42] LABS: Amorphous Heavy (0-Heavy); Mucus Light (0-Heavy)
[2022-03-10 13:43] LABS: Bacteria Mod /hpf; Red Blood Cells, Urine 0-2 /hpf (0-2); Squamous Epithelial Cells Not Seen /hpf (Few)
== END ==
LOC: LAB 14:40 → LAB SHORT 14:40
PROVIDERS: Nurse Practitioner Family
DX: N39.0 Urinary tract infection, site not specified (principal)
CPT/HCPCS: 81001; 87086

== ENCOUNTER 2022-08-27 07:49 | Day surgery (SDC) | payer MEDICARE, OTHER ==
[~2022-08-27] VITALS: Ht 177.8 cm; Wt 55.8 kg
[2022-08-27] MEDS ORDERED: SERT100 PO (08:16)
[2022-08-27] MEDS ORDERED: Acetaminophen325 M1 PO (08:17)
[2022-08-27] MEDS ORDERED: LACT10SY PO (08:18)
[2022-08-27] MEDS ORDERED: LOPE2C (08:18)
[2022-08-27] MEDS ORDERED: HALO2 PO (08:18)
[2022-08-27] MEDS ORDERED: SENN187 PO (08:19)
[2022-08-27] MEDS ORDERED: ONDA4 (08:19)
[2022-08-27] MEDS ORDERED: Aspir 8181 MG (08:19)
[2022-08-27 10:24] VITALS: BP 103/60
== END 2022-08-27 10:45 | disposition home or self-care (01) ==
LOC: ORSCSDS 07:49
PROVIDERS: Internal Medicine Gastroenterology
PROC: 0DBL8ZX Excision of Transverse Colon, Via Natural or Artificial Opening Endoscopic, Diagnostic (ICD-10-PCS; principal; 2022-08-27 08:45)
PROC: 0DBN8ZX Excision of Sigmoid Colon, Via Natural or Artificial Opening Endoscopic, Diagnostic (ICD-10-PCS; principal; 2022-08-27 08:45)
DX: Z12.11 Encounter for screening for malignant neoplasm of colon (principal); Z86.010 Personal history of colon polyps; D12.3 Benign neoplasm of transverse colon; K63.5 Polyp of colon; K57.30 Diverticulosis of large intestine without perforation or abscess without bleeding; K64.8 Other hemorrhoids; Z79.899 Other long term (current) drug therapy; Z87.891 Personal history of nicotine dependence
CPT/HCPCS: 88305; J2001; J2250; J2704; J7120

== ENCOUNTER → 2022-08-30 | Outpatient (CLI) | payer MEDICARE, OTHER ==
[~2022-08-30] MED LIST changes: +Acetaminophen325 M1 PO; +Aspir 8181 MG; +HALO2 PO; +LACT10SY PO; +LOPE2C; +ONDA4; +SERT100 PO
[2022-08-31 18:38] LABS: Source, Urine Clean Catch
[2022-08-31 19:40] LABS: Appearance, Urine Clear (Clear); Bilirubin, Urine Neg (Neg); Blood, Urine Neg (Neg); Color, Urine Amber (P-Yellow); Glucose Qualitative, Urine Neg (Neg); Ketones, Urine 1+ (Neg); Leukocyte Esterase, Urine 2+ (Neg); Nitrite, Urine Neg (Neg); Protein, Urine 2+ (Neg); Specific Gravity, Urine 1.015 (1.003-1.022); Urobilinogen, Urine 2+ (Normal)
[2022-08-31 19:52] LABS: Bacteria Mod /hpf; Mucus Light (0-Heavy); Red Blood Cells, Urine 0-2 /hpf (0-2); Squamous Epithelial Cells Not Seen /hpf (Few)
== END | disposition home or self-care (01) ==
LOC: LAB SHORT 18:36 → LAB 18:36 → LAB SHORT 08-31 18:36
PROVIDERS: Nurse Practitioner Family
DX: N39.0 Urinary tract infection, site not specified (principal)
CPT/HCPCS: 81001; 87086